=== PATIENT | male | born 1980 | race Caucasian/White ===

== ENCOUNTER 2017-08-05 10:09 | Emergency (ER) | payer BC ==
--- NOTE | 2017-08-05 10:23 | EDM.PDOC ---
ED HPI GENERAL MEDICAL PROBLEM - General Chief Complaint: ENT Problem Stated Complaint: [id number] FLU Time Seen by Provider: 08/05/17 10:22 Source of Information: Reports: Patient, RN, RN Notes Reviewed History Limitations: Reports: No Limitations - History of Present Illness INITIAL COMMENTS - FREE TEXT/NARRATIVE: Pt arrives to ER by POV with c/o sudden onset yesterday of fever, sore throat, generalized body aches, epigastric abdominal pain, chills, frontal headache, and nausea with vomiting. Denies nasal or sinus symptoms, cough, lower abdominal pain, rash, or diarrhea. No known sick contacts. Pt is from [place] and is here on vacation to [place]. Onset: Sudden Onset Date: 08/04/17 Duration: Constant Location: Reports: Generalized Quality: Reports: Ache Severity: Severe Improves with: Reports: None Worsens with: Reports: None Associated Symptoms: Reports: No Other Symptoms Generalized Pain Score (Numeric/FACES): 6 - Related Data Allergies Allergy/AdvReac Type Severity Reaction Status Date / Time No Known Allergies Allergy Verified 08/05/17 10:28 Home Meds: Home Meds . [No Known Home Meds] 08/05/17 [History] Past Medical History - Past Health History Medical/Surgical History: Denies Medical/Surgical History Social & Family History - Family History Family Medical History: Noncontributory - Tobacco Use Smoking Status *Q: Never Smoker - Recreational Drug Use Recreational Drug Use: No - Living Situation & Occupation Living situation: Reports: with Family ED ROS GENERAL - Review of Systems Review Of Systems: ROS reveals no pertinent complaints other than HPI. ED EXAM, GENERAL - Physical Exam Exam: See Below Exam Limited By: No Limitations General Appearance: Alert, WD/WN, No Apparent Distress, Other (acutely ill, but non-toxic appearing) Eye Exam: Bilateral Eye: Normal Inspection Ears: Normal External Exam, Normal Canal, Hearing Grossly Normal, Normal TMs Nose: Normal Inspection, Normal Mucosa, No Blood Throat/Mouth: Normal Lips, Normal Teeth, Normal Gums, Normal Voice, No Airway Compromise, Other (pharyngeal erythema, no exudates) Head: Atraumatic, Normocephalic Neck: Full Range of Motion, Other (shoddy cervical lymphadenopathy, no nuchal rigidity) Respiratory/Chest: No Respiratory Distress, Lungs Clear, Normal Breath Sounds, No Accessory Muscle Use, Chest Non-Tender Cardiovascular: Normal Peripheral Pulses, Regular Rate, Rhythm, No Edema, No Gallop, No JVD, No Murmur, No Rub, Tachycardia (HR 102) GI/Abdominal: Normal Bowel Sounds, Soft, No Organomegaly, No Distention, No Abnormal Bruit, Tender (mild epigastric tenderness). No: Guarding, Rigid, Rebound (Male) Exam: Deferred Rectal (Males) Exam: Deferred Back Exam: Normal Inspection, Full Range of Motion. No: CVA Tenderness (L), CVA Tenderness (R) Extremities: Normal Inspection, Non-Tender Neurological: Alert, Oriented, CN II-XII Intact, Normal Cognition, Normal Gait, No Motor/Sensory Deficits Psychiatric: Normal Affect, Normal Mood Skin Exam: Warm, Dry, Intact, Normal Color, No Rash Course - Vital Signs Last Recorded V/S: Last Vital Signs Temp 37.9 C 08/05/17 10:30 Pulse 102 H 08/05/17 10:30 Resp 16 08/05/17 10:30 BP 118/69 08/05/17 10:30 Pulse Ox 97 08/05/17 10:30 - Orders/Labs/Meds Labs: Rapid Strep: POSITIVE Influenza A/B: negative Meds: Medications Discontinued Medications Generic Name Dose Route Start Last Admin Trade Name Freq PRN Reason Stop Dose Admin Methylprednisolone Sodium Succinate 125 mg 08/05/17 10:59 Solu-Medrol IM 08/05/17 11:00 ONETIME ONE Penicillin G Procaine/Benzathine 1.2 millunits 08/05/17 11:00 Bicillin C-R 600/600 IM 08/05/17 11:01 ONETIME ONE Promethazine HCl 25 mg 08/05/17 10:59 Phenergan IM 08/05/17 11:00 ONETIME ONE Departure - Departure Time of Disposition: 11:01 Disposition: Home, Self-Care 01 Condition: Good Clinical Impression: Strep pharyngitis - Discharge Information Instructions: Strep Throat Forms: ED Department Discharge Additional Instructions: Rx: Zithromax 500mg Rx: Promethazine 25mg *Do not drive while under the influence of this medication. Drink plenty of water. Follow up for recheck in not improving in 1 to 2 days.
[2017-08-05] MEDS ORDERED: methylPREDNISolone Sodium Succinate 125 MG/2 ML SDV IM ONE (10:59)
[2017-08-05] MEDS ORDERED: Promethazine 25 MG/ML SDV IM ONE (10:59)
[2017-08-05] MEDS ORDERED: Penicillin G Benzathine/Procaine 600-600 1.2 Millunits/2 ML Syringe IM ONE (11:00)
== END 2017-08-05 11:47 | disposition home or self-care (01) ==
LOC: DL.ED 10:09
DX: J02.0 Streptococcal pharyngitis (principal)
CPT/HCPCS: 87430; 87804; 96372; 99283; J0558; J2550; J2930